=== PATIENT | female | born 1960 | race Asian ===

== ENCOUNTER 2016-05-06 18:19 | Emergency (ER) | payer BC ==
[2016-05-06 19:28] LABS: Hematocrit 37.9 % (30.3-42.9); Hemoglobin 12.5 gm/dl (10.1-14.3); Mean Corpuscular HGB Conc 33 % (30-34); Mean Corpuscular Hemoglobin 29 pg (28-32); Mean Corpuscular Volume 88 fl (79-97); Platelet Count 211 K/mm3 (140-440); Red Blood Count 4.31 M/mm3 (3.65-5.03); Red Cell Distribution Width 13.2 % (13.2-15.2); White Blood Count 6.6 K/mm3 (4.5-11.0)
[2016-05-06 19:38] LABS: Alanine Aminotransferase 11 units/L (7-56); Albumin 4.4 g/dL (3.9-5); Albumin/Globulin Ratio 1.6 %; Alkaline Phosphatase 83 units/L (35-129); Anion Gap 17 mmol/L; BUN/Creatinine Ratio 21.25; Bilirubin,Total 0.3 mg/dL (0.1-1.2); Blood Urea Nitrogen 17 mg/dL (7-17); Calcium 9.7 mg/dL (8.4-10.2); Carbon Dioxide 26 mmol/L (22-30); Chloride 104.2 mmol/L (98-107); Glucose 105 mg/dL (65-100); Lipase 27 units/L (13-60); Potassium 3.9 mmol/L (3.6-5.0); Sodium 143 mmol/L (137-145); Total Protein 7.2 g/dL (6.3-8.2)
[2016-05-07 00:25] VITALS: BP 110/60
--- NOTE | 2016-05-07 00:29 | Emergency Department Report ---
ED Palpitations HPI - General Chief Complaint: Arrhythmia/Palpitations Stated Complaint: IRREGULAR HB/RASH/SWOLLEN LEGS Source: patient Mode of arrival: Ambulatory Limitations: No Limitations - History of Present Illness Initial Comments: 56-year-old female with a past medical history Lyme disease diagnosed in January presents to the hospital complains of ongoing palpitations and rash. Patient was diagnosed with Lyme's disease in January. She has had palpitations since then. She had a workup and evaluation performed by cardiology including stress test, echocardiogram, Holter monitor use 2 and was told that nothing is wrong with her heart. Now for the past 1.5 week patient has had a papular pruritic rash to her back. She saw her primary care doctor received an IM dose of steroid.s. No meds were prescribed. She continues to have the rash and is concerned about her liver function tests. She is scheduled to see Dr. Carranza June 01. She has not been referred to a food service manager. No reports of chest pain, shortness of breath, fever, or syncope. She is currently taking an herbal supplement recommended for Lyme's disease that she investigated and ordered. He states this medication helped with her palpitation sensation. News Copy Editor: Dr. Vásquez - Related Data Previous Rx's Medication Instructions Recorded Last Taken Type Prednisone [predniSONE 10 mg 10 mg PO .TAPER #1 tab.ds.pk 05/07/16 Unknown Rx (6-Day Pack, 21 Tabs)] hydrOXYzine PAMOATE [Vistaril] 25 mg PO Q6HR PRN #30 capsule 05/07/16 Unknown Rx Allergies Allergy/AdvReac Type Severity Reaction Status Date / Time No Known Allergies Allergy Unverified 05/06/16 18:46 ED Review of Systems ROS: Stated complaint: IRREGULAR HB/RASH/SWOLLEN LEGS Other details as noted in HPI Comment: All other systems reviewed and negative Other: Constitutional: No fevers chills or weight loss Eyes: No eye pain visual changes or discharge ENT: No ear pain or throat pain Neck: Denies pain Respiratory: Denies cough wheezing shortness of breath at rest shortness of breath or exertion, orthopnea or PND Cardiovascular: Denies chest pain GI: Denies abdominal pain, nausea, vomiting, diarrhea : Denies dysuria, urinary frequency, or urgency Musculoskeletal: Denies back pain, joint swelling Skin: As per HPI Neurologic: Denies headache, numbness, weakness Psychiatric: Denies suicidal ideation, hallucinations Hematological/lymphatic: Denies easy bruising, lymphadenopathy ED Past Medical Hx - Past Medical History Previous Medical History?: No - Surgical History Past Surgical History?: No - Social History Smoking Status: Never Smoker Substance Use Type: None - Medications Home Medications: Home Medications Medication Instructions Recorded Confirmed Last Taken Type Prednisone [predniSONE 10 mg 10 mg PO .TAPER #1 tab.ds.pk 05/07/16 Unknown Rx (6-Day Pack, 21 Tabs)] hydrOXYzine PAMOATE [Vistaril] 25 mg PO Q6HR PRN #30 capsule 05/07/16 Unknown Rx ED Physical Exam - General Limitations: No Limitations - Other Other exam information: General: No limitations, patient is alert in no acute distress Head exam: Atraumatic, normocephalic Eyes exam: Normal appearance, pupils equal reactive to light, extraocular movements intact ENT: Moist mucous membrane, normal oropharynx Neck exam: Normal inspection, full range of motion, no meningismus nontender Respiratory exam: Clear to auscultation bilateral, no wheezes, rales, crackles Cardiovascular: Normal rate and rhythm, normal heart sounds Abdomen: Soft, nondistended, and nontender, with normal bowel sounds, no rebound, or guarding Extremity: Full range of motion normal inspection no deformity Back: Normal Inspection, full range of motion, no tenderness Neurologic: Alert, oriented x3, cranial nerves intact, no motor or sensory deficit Psychiatric: normal affect, normal mood Skin: Papular pruritic rash back, blanching macular component. No warmth or erythema rash primarily located in the upper and mid back ED Course Vital Signs 05/06/16 18:38 Temperature 98 F Pulse Rate 73 Respiratory 18 Rate Blood Pressure 126/73 O2 Sat by Pulse 100 Oximetry - Reevaluation(s) Reevaluation #1: 05/07/16 00:29 Patient stable. Still has sensation of early beats PAC noticed on EKG ED Medical Decision Making - Lab Data Result diagrams: 05/06/16 18:55 05/06/16 18:55 Lab Results 05/06/16 05/06/16 05/06/16 Range/Units 18:55 18:55 18:55 WBC 6.6 (4.5-11.0) K/mm3 RBC 4.31 (3.65-5.03) M/mm3 Hgb 12.5 (10.1-14.3) gm/dl Hct 37.9 (30.3-42.9) % MCV 88 (79-97) fl MCH 29 (28-32) pg MCHC 33 (30-34) % RDW 13.2 (13.2-15.2) % Plt Count 211 (140-440) K/mm3 Sodium 143 (137-145) mmol/L Potassium 3.9 (3.6-5.0) mmol/L Chloride 104.2 (98-107) mmol/L Carbon Dioxide 26 (22-30) mmol/L Anion Gap 17 mmol/L BUN 17 (7-17) mg/dL Creatinine 0.8 (0.7-1.2) mg/dL Estimated GFR > 60 ml/min BUN/Creatinine Ratio 21.25 % Glucose 105 H (65-100) mg/dL Calcium 9.7 (8.4-10.2) mg/dL Total Bilirubin 0.3 (0.1-1.2) mg/dL AST 18 (5-40) units/L ALT 11 (7-56) units/L Alkaline Phosphatase 83 (35-129) units/L Troponin T < 0.010 (0.00-0.029) ng/mL Total Protein 7.2 (6.3-8.2) g/dL Albumin 4.4 (3.9-5) g/dL Albumin/Globulin Ratio 1.6 % Lipase 27 (13-60) units/L - EKG Data -: EKG Interpreted by Me (sinus rhythm rate 75 with premature supraventricular complexes) - Medical Decision Making Patient be tried on a prednisone taper for her rash. Instructed to discontinue medication if rash worsens. Dermatology follow-up will be provided. She states her ID appointment is pending. Only EKG abnormality is a premature supraventricular complex which appears to be the sensation that the patient is having. This is not life-threatening and patient may follow-up with a rn procedures. Copy of EKG provided. - Differential Diagnosis arrhythmia, PAC, PVC, cellulitis, nonspecific rash, Critical Care Time: No Critical care attestation.: If time is entered above; I have spent that time in minutes in the direct care of this critically ill patient, excluding procedure time. ED Disposition Clinical Impression: Pruritic erythematous rash, Premature supraventricular beats Disposition: DISCHARGED TO HOME OR SELFCARE Is pt being admited?: No Does the pt Need Aspirin: No Condition: Stable Instructions: Palpitations (ED), Acute Rash (ED) Additional Instructions: Take the medication as prescribed. Return if symptoms worsen. If your rash worsens while taking the prednisone stopped the medication. You have been provided a copy of the EKG to take to your rn procedures as requested. Prescriptions: hydrOXYzine PAMOATE [Vistaril] 25 mg PO Q6HR PRN #30 capsule PRN Reason: Itching Prednisone [predniSONE 10 mg (6-Day Pack, 21 Tabs)] 10 mg PO .TAPER #1 tab.ds.pk Referrals: RODRIGUEZ MARRERO MD [Primary Care Provider] - 3-5 Days Rodriguez Watts MD [Other] - 2-3 Days (food service manager) Time of Disposition: 00:34
== END 2016-05-07 00:50 | disposition home or self-care (01) ==
LOC: ED 18:19
DX: I49.1 Atrial premature depolarization (principal); L29.9 Pruritus, unspecified
CPT/HCPCS: 36415; 80053; 83690; 84484; 85027; 93005; 93010; 99283